=== PATIENT | female | born 1955 | race Caucasian/White ===

== ENCOUNTER 2020-02-26 19:33 | Emergency (ER) | payer OTHER ==
[~2020-02-26] VITALS: Ht 157.5 cm; Wt 72.6 kg
[2020-02-26 20:14] VITALS: Ht 157.5 cm; Wt 72.6 kg
[2020-02-26 22:47] VITALS: BP 124/86
== END 2020-02-26 22:45 | disposition home or self-care (01) ==
LOC: ED 19:33
DX: S82.092A Other fracture of left patella, initial encounter for closed fracture (principal); S50.311A Abrasion of right elbow, initial encounter; I10 Essential (primary) hypertension; W19.XXXA Unspecified fall, initial encounter; Y93.89 Activity, other specified; Y92.89 Other specified places as the place of occurrence of the external cause; Y99.8 Other external cause status
CPT/HCPCS: J2270; Q0092; Q0162